=== PATIENT | female | born 1950 | race Two or more races ===

== ENCOUNTER 2021-03-28 22:38 | Inpatient (IN) | payer MEDICARE, SELFPAY ==
[2021-03-29 00:56] VITALS: BMI 21.8
[2021-03-29 01:48] VITALS: BP 107/80; PULSE 78; RESP 18; TEMP 36.9; O2SAT 94
--- NOTE | 2021-03-29 01:49 | PC.ADMIT ---
Admitted a 71 y.o. single female from [facility] w/ presenting problem of attempted suicide in which Pt initially reported that she had intentional ingested 8-9 pills. Pt. reports that she has difficulties w/ swallowing and that after putting the pills in the mouth,the pills got stuck in her throat due to hx. of having difficulties w/ thyroid and swallowing difficulties.Pt. states that she began to choke and in panic took a knife w/c she tried to use to push the pills down the throat.Currently pt. denies SI, HI, AH,VH and paranoia Patient is alert and oriented x4 and presents w/ organized thought and speech patterns w/ no hallucinations,no psychosis, no delusions and no paranoia.Patient signs the CV, pleasant on approach and cooperative w/ the admission process.Patient denies pain at this time.Skin is warm,no skin tears, bruises or edema noted.Patient has and old scar on her L wrist and has varicose veins in both legs. Patient wears upper and lower dentures.Patient refused flu vaccine and said she already received it a month ago.She said she is independent in ADLS and ambulate independently w/ steady gait and she is using a cane.Patient signed all consents and DR.Joseph Schwab notified of admission w/ n. o. made.Pt. covid result is negative.Pt. has PMH OF Etoh, Hepatomegaly Smoker, AND HTN. She is on CIWA and she only scores 2.We'll continue to monitor patient.
[2021-03-29] MEDS: Levothyroxine Sodium 175 MCG TABLET PO (06:21)
[2021-03-29] MEDS: Omeprazole 20 MG CAPSULE.DR PO (06:21)
[2021-03-29 07:55] VITALS: BP 120/75; PULSE 75; RESP 18; TEMP 36.2; O2SAT 95
[2021-03-29] MEDS: Folic Acid 1 MG TABLET PO (08:35)
[2021-03-29] MEDS: Ferrous Sulfate 324 MG TABLET.DR PO (08:35)
[2021-03-29] MEDS: Metoprolol Tartrate 25 MG TABLET PO (08:35)
[2021-03-29] MEDS: Sertraline HCL 100 MG TABLET 200 MG PO (08:35)
[2021-03-29] MEDS: Cyclobenzaprine HCl 5 MG TABLET PO (08:35)
[2021-03-29] MEDS: Nicotine 21 MG PATCH.TD24 TRANSDERMA (08:45)
[2021-03-29 09:42] VITALS: BMI 21.9
--- NOTE | 2021-03-29 11:29 | P.HPPS_ITS ---
HPI Date of Service: 03/29/21 Chief Complaint: Major depressive d/o Sources of Information: patient interviewed, chart reviewed and crisis/core team assessment reviewed HPI Subjective Notes: Conditional Voluntary Narrative: the patient is a 71-year-old descent female, mother of adult children, currently retired, used to be an insurance claim under water assistant, living by herself with good social support referred from another emergency room for suicidal ideation. According to the crisis assessment, the patient took several pills abruptly and since he she felt that he was stacking her throat, she used a knife to move the pills out. She had a blood alcohol level over 100 at the moment that she was assessed on the emergency room. On interview, the patient adamantly denies suicidal ideation, she is awake, alert and oriented and she is able to contract for safety. She admitted some dysphoria with mild lack of energy and anxiety but she minimized her alcohol use. Apparently, she drinks a gal of hard liquor every 3 days. She stated that she has been using alcohol heavily in the last 6 years. She denies prior treatment for alcohol use disorder such as detox or rehab or outpatient services. She stated that she is not a danger to self or others, she is able to to take care of herself and she is willing to continue treatment. At this moment, with not have collateral information and she has scored 2 on the CIWA protocol. Past Psychiatric History: Denies Medical Evaluation Reviewed: Hospitalist Ashly Pending [facility] Medical History Hypertension Family History: denies Social History: retired, she used to work for an insurance company Substance History: alcohol use doing a daily basis, denies prior treatment for alcohol use disorder Trauma History: denies Diagnostics Vital Signs (24Hr): Vital Signs - 24 hr 03/29/21 01:48 03/29/21 07:55 Temperature 98.4 F 97.2 F Pulse Rate 78 75 Respiratory Rate 18 18 Blood Pressure 107/80 120/75 Pulse Oximetry 94 95 BMI result Body Mass Index 21.9 Meds/Allergies Meds Home Medications Acetaminophen (Acetaminophen 325 Mg Tablet) 650 mg PO Q6H PRN PRN Reason: Headache/Pain Mild Scale (1-3) Al Hydroxide/Mg Hydroxide (Magnesium Hydrox/Alum Hydrox 30 Ml Oral.Susp) 30 ml PO Q6H PRN PRN Reason: Heartburn/Nausea Cyclobenzaprine HCl (Cyclobenzaprine Hcl 5 Mg Tablet) 5 mg PO BEDTIME PRN PRN Reason: Muscle Pain Cyclobenzaprine HCl (Cyclobenzaprine Hcl 5 Mg Tablet) 5 mg PO DAILY [facility] Last Admin: 03/29/21 08:35 Dose: 5 mg Documented by: Ferrous Sulfate (Ferrous Sulfate 324 Mg Tablet.) 324 mg PO DAILY [facility] Last Admin: 03/29/21 08:35 Dose: 324 mg Documented by: Folic Acid (Folic Acid 1 Mg Tablet) 1 mg PO DAILY [facility] Last Admin: 03/29/21 08:35 Dose: 1 mg Documented by: Hydroxyzine HCl (Hydroxyzine Hcl 25 Mg Tablet) 25 mg PO BEDTIME PRN PRN Reason: Anxiety Ibuprofen (Ibuprofen 600 Mg Tablet) 600 mg PO Q6H PRN PRN Reason: Pain (Scale Score 4-6) Levothyroxine Sodium (Levothyroxine Sodium 175 Mcg Tablet) 175 mcg PO DAILY@0600 [facility] Last Admin: 03/29/21 06:21 Dose: 175 mcg Documented by: Lorazepam (Lorazepam 1 Mg Tablet) 1 mg PO Q2H PRN PRN Reason: CIWA 9-14 Lorazepam (Lorazepam 1 Mg Tablet) 2 mg PO Q2H PRN PRN Reason: CIWA > 14 Magnesium Hydroxide (Milk Of Magnesia 30 Ml Oral.Susp) 30 ml PO DAILY PRN PRN Reason: Constipation Metoprolol Tartrate (Metoprolol Tartrate 25 Mg Tablet) 25 mg PO DAILY [facility] Last Admin: 03/29/21 08:35 Dose: 25 mg Documented by: Nicotine (Nicotine 21 Mg Patch.Td24) 21 mg TRANSDERMA DAILY [facility] Last Admin: 03/29/21 08:45 Dose: 21 mg Documented by: Nicotine Polacrilex (Nicotine Polacrilex 2 Mg Gum) 2 mg BUCCAL Q1H PRN PRN Reason: Nicotine Cravings Omeprazole (Omeprazole 20 Mg Capsule.) 20 mg PO DAILY@0630 [facility] Last Admin: 03/29/21 06:21 Dose: 20 mg Documented by: Potassium Chloride (Potassium Chloride Er 10 Meq Capsule.Er) 10 meq PO DAILY [facility] Last Admin: 03/29/21 08:35 Dose: 10 meq Documented by: Sertraline HCl (Sertraline Hcl 100 Mg Tablet) 200 mg PO DAILY [facility] Last Admin: 03/29/21 08:35 Dose: 200 mg Documented by: Trazodone HCl (Trazodone Hcl 50 Mg Tablet) 50 mg PO BEDTIME PRN PRN Reason: Insomnia Allergies Allergies Allergy/AdvReac Type Severity Reaction Status Date / Time Unable to Assess Allergy Unverified 03/28/21 22:56 Mental Status Exam Mental Status Exam Patient Appearance: Well Grooomed and Appropriate Patient Orientation: Person and Situation Level of Consciousness: Awake Patient Behavior: Appropriate and Cooperative Mood Description: Depressed Affect Description: Constricted Patient Cognition Impaired: No Ability to Follow Directions: Good Speech Pattern: Clear Hallucinations: None Delusions: Not Present Thought Process: Linear Thought Content: positive for Intact Judgement: Fair Assessment & Plan Assessment & Plan (1) Depressive disorder: Status: Acute Code(s): F32.A - Depression, unspecified (2) Alcohol abuse with intoxication: Status: Acute Code(s): F10.129 - Alcohol abuse with intoxication, unspecified Plan elderly female with a long history of alcohol use disorder admitted for self-harming behavior in the context of acute alcohol intoxication. The patient denies active suicidal ideation but she is on CIWA protocol since she drinks a gal of vodka every 3 days. Plan 1. Continue CIWA protocol. 2. Start Remeron 7.5 mg p.o. q.h.s. to target insomnia and depression Reason for continued inpatient stay Substantial Risk for: harm to self, inability to function, rapid decompensation and med/psych decompensation
--- NOTE | 2021-03-29 15:59 | P.CONHOSP_ITS ---
History of Present Illness Data of Consult Service Date: 03/29/21 Primary Care Provider: Unknown Physician HPI Reason for consult: Medical evaluattion 71 year old female with HTN, GERD, depression, hypothyroidism, alcohol use desorder who is admitted to Psych due to self harm behavior by drug ingestio, and alcholism..She tells me she is feeling better now, she has no acute medical complaint Review of Systems Review of Systems: Gen: no fever Resp: no sob, no cough CV: no chest, no DAY, no leg edema GI: No n/v, no abd pain Neuro: No confusion Psych: no SI at this moment Yes all other systems are reviewed and are negative [facility] Medical History (Updated 03/29/21 @ 16:39 by Louie Gong MD) Hypertension Hypothyroidism Social History Household Members: [facility] Do you presently have visiting nurse or other home services: Yes Patient Tobacco Use Status: Current everyday Tobacco user Tobacco use type: Cigarette Smoked in Last 30 Days: Yes e-Cigarette/Vaping Use: Never Used Patient Interested in Nicotine Replacement: Yes Patient Given Instructions on How to Stop Smoking: Yes Date Education Initiated: 03/29/21 Second Hand Smoke Exposure: No Use of substances other than those prescribed or required for medical reasons: No Currently Displaying Signs/Symptoms of Drug Intoxication Withdrawal: No Any prior treatment program specific to substance use: No Have you been hit, kicked, punched, or otherwise hurt by someone within the past year? If so, by whom?: No Do you feel safe in your current relationship?: Yes Is there a partner from a previous relationship who is making you feel unsafe now?: No Are you made to feel afraid or neglected: No [facility] Healthcare Practices: druze. Advance Directives: No Advance Directives Information Provided: Yes (declined) Advance Directives on File: No Do you have thoughts of harming others: None Do you have a plan to hurt others: No Plan Recently lost weight without trying: No How much weight loss: Not applicable Eating poorly because of decreased appetite: No Nutrition screen score: 0 Nutrition Risks: No Nutritional Risk Patient : No : No Poor oral hygiene: No service: No Sexual orientation: Straight/Heterosexual Meds Allergies Allergy/AdvReac Type Severity Reaction Status Date / Time Unable to Assess Allergy Unverified 03/28/21 22:56 Active Medications: Current Medications Acetaminophen (Acetaminophen 325 Mg Tablet) 650 mg PO Q6H PRN PRN Reason: Headache/Pain Mild Scale (1-3) Al Hydroxide/Mg Hydroxide (Magnesium Hydrox/Alum Hydrox 30 Ml Oral.Susp) 30 ml PO Q6H PRN PRN Reason: Heartburn/Nausea Cyclobenzaprine HCl (Cyclobenzaprine Hcl 5 Mg Tablet) 5 mg PO BEDTIME PRN PRN Reason: Muscle Pain Cyclobenzaprine HCl (Cyclobenzaprine Hcl 5 Mg Tablet) 5 mg PO DAILY [facility] Last Admin: 03/29/21 08:35 Dose: 5 mg Documented by: Ferrous Sulfate (Ferrous Sulfate 324 Mg Tablet.) 324 mg PO DAILY [facility] Last Admin: 03/29/21 08:35 Dose: 324 mg Documented by: Folic Acid (Folic Acid 1 Mg Tablet) 1 mg PO DAILY [facility] Last Admin: 03/29/21 08:35 Dose: 1 mg Documented by: Hydroxyzine HCl (Hydroxyzine Hcl 25 Mg Tablet) 25 mg PO BEDTIME PRN PRN Reason: Anxiety Ibuprofen (Ibuprofen 600 Mg Tablet) 600 mg PO Q6H PRN PRN Reason: Pain (Scale Score 4-6) Levothyroxine Sodium (Levothyroxine Sodium 175 Mcg Tablet) 175 mcg PO DAILY@0600 [facility] Last Admin: 03/29/21 06:21 Dose: 175 mcg Documented by: Lorazepam (Lorazepam 1 Mg Tablet) 1 mg PO Q2H PRN PRN Reason: CIWA 9-14 Lorazepam (Lorazepam 1 Mg Tablet) 2 mg PO Q2H PRN PRN Reason: CIWA > 14 Magnesium Hydroxide (Milk Of Magnesia 30 Ml Oral.Susp) 30 ml PO DAILY PRN PRN Reason: Constipation Metoprolol Tartrate (Metoprolol Tartrate 25 Mg Tablet) 25 mg PO DAILY [facility] Last Admin: 03/29/21 08:35 Dose: 25 mg Documented by: Nicotine (Nicotine 21 Mg Patch.Td24) 21 mg TRANSDERMA DAILY [facility] Last Admin: 03/29/21 08:45 Dose: 21 mg Documented by: Nicotine Polacrilex (Nicotine Polacrilex 2 Mg Gum) 2 mg BUCCAL Q1H PRN PRN Reason: Nicotine Cravings Omeprazole (Omeprazole 20 Mg Capsule.) 20 mg PO DAILY@0630 [facility] Last Admin: 03/29/21 06:21 Dose: 20 mg Documented by: Potassium Chloride (Potassium Chloride Er 10 Meq Capsule.Er) 10 meq PO DAILY [facility] Last Admin: 03/29/21 08:35 Dose: 10 meq Documented by: Sertraline HCl (Sertraline Hcl 100 Mg Tablet) 200 mg PO DAILY [facility] Last Admin: 03/29/21 08:35 Dose: 200 mg Documented by: Trazodone HCl (Trazodone Hcl 50 Mg Tablet) 50 mg PO BEDTIME PRN PRN Reason: Insomnia Home Medications Medication Instructions Recorded Confirmed Last Taken Type cyclobenzaprine 5 mg tablet 5 mg PO BEDTIME PRN 03/29/21 03/29/21 03/27/21 20:45 History cyclobenzaprine 5 mg tablet 5 mg PO DAILY 03/29/21 03/29/21 03/27/21 20:40 History ferrous sulfate 325 mg PO DAILY 03/29/21 03/29/21 03/27/21 20:40 History folic acid 1 mg tablet 1 mg PO DAILY 03/29/21 03/29/21 03/27/21 10:25 History ibuprofen 600 mg PO Q6H PRN 03/29/21 03/29/21 03/27/21 20:45 History levothyroxine 175 mcg PO DAILY 03/29/21 03/29/21 03/27/21 10:25 History metoprolol tartrate 25 mg PO DAILY 03/29/21 03/29/21 03/27/21 10:30 History nicotine 21 mg TRANSDERMAL DAILY 03/29/21 03/29/21 03/27/21 10:25 History pantoprazole 40 mg PO DAILY 03/29/21 03/29/21 03/27/21 10:25 History potassium chloride 10 mEq 10 meq PO DAILY 03/29/21 03/29/21 03/27/21 10:20 History tablet,extended release sertraline 100 mg tablet (Zoloft) 200 mg PO DAILY 03/29/21 03/29/21 03/27/21 20:25 History Physical Exam Vital Signs and Narrative: Vital Signs: Last Vital Signs Temp 97.2 F 03/29/21 07:55 Pulse 75 03/29/21 07:55 Resp 18 03/29/21 07:55 BP 120/75 03/29/21 07:55 Pulse Ox 95 03/29/21 07:55 BMI result Body Mass Index 21.9 General: AO X 3, no acute distress Resp: CTA bilateral CVS: S1,S2,RRR GI: +BS, NT, no distention Skin: No rash Neuro: motor grossly intact, CN 2 to 12 is intact Psych: appropriate affect Assessment and Plan (1) Depressive disorder: Status: Acute (2) Alcohol abuse with intoxication: Status: Acute (3) Hypertension: Status: Acute Plan 71 year old female with HTN, GERD, depression, hypothyroidism, alcohol use desorder who is admitted to Psych due to self harm behavior by drug ingestion 1/ HTN--controlled, continue Metoprolol 2/Hypothyroidism--continue Levothyroxine 3/GERD--PPI 4/Depression/SI--management per [facility] 5/Alcoholism--HARI Thanks
[2021-03-29 19:50] VITALS: BP 125/74; PULSE 75; RESP 16; TEMP 36.5; O2SAT 95
[2021-03-30 06:00] VITALS: BP 110/65; PULSE 71; RESP 14; O2SAT 95
[2021-03-30] MEDS: Levothyroxine Sodium 175 MCG TABLET PO (06:11)
[2021-03-30] MEDS: Omeprazole 20 MG CAPSULE.DR PO (06:11)
[2021-03-30] MEDS: Sertraline HCL 100 MG TABLET 200 MG PO (08:17)
[2021-03-30] MEDS: Nicotine 21 MG PATCH.TD24 TRANSDERMA (08:17)
[2021-03-30] MEDS: Ferrous Sulfate 324 MG TABLET.DR PO (08:18)
[2021-03-30] MEDS: Cyclobenzaprine HCl 5 MG TABLET PO ×2 (08:18→20:37)
[2021-03-30] MEDS: Metoprolol Tartrate 25 MG TABLET PO (08:18)
[2021-03-30] MEDS: Folic Acid 1 MG TABLET PO (08:18)
--- NOTE | 2021-03-30 13:48 | P.PNPSI_ITS ---
Subjective Subjective Date of Service: 03/30/21 Reason For Visit: Major depressive d/o Subjective Notes: Conditional Voluntary Interim History: The nursing staff reported the patient has been pleasant and cooperative, she slept well last night. She adamantly denied suicidal ideation and her observation for alcohol withdrawal was negative since admission. On interview, the patient reported that she is feeling fine, she denies suicidal ideation, she stated that she has never being depressed or suicidal. She minimize her alcohol use disorder and she stated that she would seek treatment without medications. The social media coordinator contact her daughter and the daughter reported a worse situation, the patient drinks a lot of alcohol and she put herself on an safe situations. We will have a family meeting early next week and explained the options. For the treatment, this moment the patient is in a pre-contemplative state Mental Status Exam Mental Status Exam Patient Appearance: Appropriate Patient Orientation: Person, Place and Situation Level of Consciousness: Awake Patient Behavior: Cooperative Mood Description: Relaxed Affect Description: Constricted Patient Cognition Impaired: No Ability to Follow Directions: Good Speech Pattern: Clear Memory Description: Intact Hallucinations: None Delusions: Not Present Thought Process: Linear Thought Content: positive for Circumstantial Judgement: Fair Diagnostics Vital Signs (24Hr): Vital Signs - 24 hr 03/29/21 19:50 03/30/21 06:00 Temperature 97.7 F Pulse Rate 75 71 Respiratory Rate 16 14 Blood Pressure 125/74 110/65 Pulse Oximetry 95 95 BMI result Body Mass Index 21.9 Medications Medications Current Medications Acetaminophen (Acetaminophen 325 Mg Tablet) 650 mg PO Q6H PRN PRN Reason: Headache/Pain Mild Scale (1-3) Al Hydroxide/Mg Hydroxide (Magnesium Hydrox/Alum Hydrox 30 Ml Oral.Susp) 30 ml PO Q6H PRN PRN Reason: Heartburn/Nausea Cyclobenzaprine HCl (Cyclobenzaprine Hcl 5 Mg Tablet) 5 mg PO BEDTIME PRN PRN Reason: Muscle Pain Cyclobenzaprine HCl (Cyclobenzaprine Hcl 5 Mg Tablet) 5 mg PO DAILY [facility] Last Admin: 03/30/21 08:18 Dose: 5 mg Documented by: Ferrous Sulfate (Ferrous Sulfate 324 Mg Tablet.) 324 mg PO DAILY [facility] Last Admin: 03/30/21 08:18 Dose: 324 mg Documented by: Folic Acid (Folic Acid 1 Mg Tablet) 1 mg PO DAILY [facility] Last Admin: 03/30/21 08:18 Dose: 1 mg Documented by: Hydroxyzine HCl (Hydroxyzine Hcl 25 Mg Tablet) 25 mg PO BEDTIME PRN PRN Reason: Anxiety Ibuprofen (Ibuprofen 600 Mg Tablet) 600 mg PO Q6H PRN PRN Reason: Pain (Scale Score 4-6) Levothyroxine Sodium (Levothyroxine Sodium 175 Mcg Tablet) 175 mcg PO DAILY@0600 [facility] Last Admin: 03/30/21 06:11 Dose: 175 mcg Documented by: Lorazepam (Lorazepam 1 Mg Tablet) 1 mg PO Q2H PRN PRN Reason: CIWA 9-14 Lorazepam (Lorazepam 1 Mg Tablet) 2 mg PO Q2H PRN PRN Reason: CIWA > 14 Magnesium Hydroxide (Milk Of Magnesia 30 Ml Oral.Susp) 30 ml PO DAILY PRN PRN Reason: Constipation Metoprolol Tartrate (Metoprolol Tartrate 25 Mg Tablet) 25 mg PO DAILY [facility] Last Admin: 03/30/21 08:18 Dose: 25 mg Documented by: Nicotine (Nicotine 21 Mg Patch.Td24) 21 mg TRANSDERMA DAILY [facility] Last Admin: 03/30/21 08:17 Dose: 21 mg Documented by: Nicotine Polacrilex (Nicotine Polacrilex 2 Mg Gum) 2 mg BUCCAL Q1H PRN PRN Reason: Nicotine Cravings Omeprazole (Omeprazole 20 Mg Capsule.Dr) 20 mg PO DAILY@0630 [facility] Last Admin: 03/30/21 06:11 Dose: 20 mg Documented by: Potassium Chloride (Potassium Chloride Er 10 Meq Capsule.Er) 10 meq PO DAILY [facility] Last Admin: 03/30/21 08:18 Dose: 10 meq Documented by: Sertraline HCl (Sertraline Hcl 100 Mg Tablet) 200 mg PO DAILY [facility] Last Admin: 03/30/21 08:17 Dose: 200 mg Documented by: Trazodone HCl (Trazodone Hcl 50 Mg Tablet) 50 mg PO BEDTIME PRN PRN Reason: Insomnia Allergies Allergies Allergy/AdvReac Type Severity Reaction Status Date / Time Unable to Assess Allergy Unverified 03/28/21 22:56 Assessment & Plan Assessment & Plan (1) Depressive disorder: Status: Acute Code(s): F32.A - Depression, unspecified (2) Alcohol abuse with intoxication: Status: Acute Code(s): F10.129 - Alcohol abuse with intoxication, unspecified (3) Hypertension: Status: Acute Code(s): I10 - Essential (primary) hypertension Plan 71 year old female with HTN, GERD, depression, hypothyroidism, alcohol use desorder who is admitted to Psych due to self harm behavior by drug ingestion 1/ HTN--controlled, continue Metoprolol 2/Hypothyroidism--continue Levothyroxine 3/GERD--PPI 4/Depression/SI--management per [facility]. keep Remeron at 15 mg p.o. q.h.s. 5/Alcoholism--CIWA to be discontinued tomorrow if she does not score I spent minutes with the patient and/or on the patient floor today, greater than?50% of which was spent counseling/coordinating care. Reason for contiued inpatient stay Substantial Risk for: inability to function, rapid decompensation and med/psych decompensation
--- NOTE | 2021-03-30 14:39 | MHC.RECOVSUP ---
Recovery Support note: Patient is a 71 year old [place]i speaking female on the [facility] in room 184-1. This comic book writer met with patient to discuss her alcohol use and recovery supports. Patient reports drinking two drinks of vodka daily with approximately 3-4oz of vodka in each with fruit juice. Patient acknowledges that her drinking has created problems for her and that her family is concerned about her. Discussed the negative health consequences of drinking with patient. Patient reports that she plans to stop drinking and identifies stress as the reason why she drinks. Patient reports her mother is in her 90s and that she wants to be there for her mother as she doesn't know how long she has left, referring to her mother. Discussed with patient how continued drinking may lead to future hospitalizations, preventing her from being with her mother and patient acknowledged. Patient states she has attended AA before and found it somewhat helpful while she was in a meeting, however reports that after the meetings were over she would continue to drink. Discussed recovery coaching with patient. Patient is agreeable to being referred to a recovery manager for follow up after discharge. This comic book writer will refer patient to a recovery manager. Encouraged patient to utilize her time in the hospital as an opportunity to think about what her recovery will look like and how she will stay busy and avoid drinking after discharge. Patient reports no questions or concerns at this time. This comic book writer is available to meet with patient again prior to discharge if needed to discuss recovery and recovery supports.
[2021-03-30] MEDS: Ibuprofen 600 MG TABLET PO (20:36)
[2021-03-30] MEDS: hydrOXYzine HCL 25 MG TABLET PO (20:37)
[2021-03-30 21:23] VITALS: BP 112/71; PULSE 78; RESP 16; TEMP 36.9; O2SAT 97
[2021-03-31 06:00] VITALS: BP 110/76; PULSE 80; TEMP 36.7; O2SAT 97
[2021-03-31] MEDS: Levothyroxine Sodium 175 MCG TABLET PO (06:06)
[2021-03-31] MEDS: Omeprazole 20 MG CAPSULE.DR PO (06:06)
[2021-03-31] MEDS: Sertraline HCL 100 MG TABLET 200 MG PO (08:46)
[2021-03-31] MEDS: Folic Acid 1 MG TABLET PO (08:46)
[2021-03-31] MEDS: Cyclobenzaprine HCl 5 MG TABLET PO ×2 (08:46→21:28)
[2021-03-31] MEDS: Ferrous Sulfate 324 MG TABLET.DR PO (08:46)
[2021-03-31] MEDS: Metoprolol Tartrate 25 MG TABLET PO (08:46)
--- NOTE | 2021-03-31 11:43 | P.PNPSI_ITS ---
Subjective Subjective Date of Service: 03/31/21 Reason For Visit: Major depressive d/o Interim History: pt found resting in her bed after breakfast. no complaints or requests. informed she is not in alcohol withdrawal and that CIWA protocol and ativan PRNs will be DCed. pt explains she did not try to kill herself prior to hospitalization but rather was in pain and was trying to use a knife in her mouth to aid the situation somehow. she reports her mood is fine and complains only of body aches. per staff, not scoring on CIWA. isolative. signed 3-day notice on friday. got atarax, flexeril, ibuprofen for leg pain. Mental Status Exam Mental Status Exam Narrative: appropriately dressed and groomed. cooperative. no PMA/PMR. speech nml rate, amount, loudness, latency. somewhat flattened tone. accented. thoughts linear and logical. affect flexible. mood Fine. denies SI. no HI/AVH expressed. Diagnostics Vital Signs (24Hr): Vital Signs - 24 hr 03/30/21 21:23 03/31/21 06:00 Temperature 98.4 F 98.0 F Pulse Rate 78 80 Respiratory Rate 16 Blood Pressure 112/71 110/76 Pulse Oximetry 97 97 BMI result Body Mass Index 21.9 Medications Medications Current Medications Acetaminophen (Acetaminophen 325 Mg Tablet) 650 mg PO Q6H PRN PRN Reason: Headache/Pain Mild Scale (1-3) Al Hydroxide/Mg Hydroxide (Magnesium Hydrox/Alum Hydrox 30 Ml Oral.Susp) 30 ml PO Q6H PRN PRN Reason: Heartburn/Nausea Cyclobenzaprine HCl (Cyclobenzaprine Hcl 5 Mg Tablet) 5 mg PO BEDTIME PRN PRN Reason: Muscle Pain Last Admin: 03/30/21 20:37 Dose: 5 mg Documented by: Cyclobenzaprine HCl (Cyclobenzaprine Hcl 5 Mg Tablet) 5 mg PO DAILY [facility] Last Admin: 03/31/21 08:46 Dose: 5 mg Documented by: Ferrous Sulfate (Ferrous Sulfate 324 Mg Tablet.) 324 mg PO DAILY [facility] Last Admin: 03/31/21 08:46 Dose: 324 mg Documented by: Folic Acid (Folic Acid 1 Mg Tablet) 1 mg PO DAILY [facility] Last Admin: 03/31/21 08:46 Dose: 1 mg Documented by: Hydroxyzine HCl (Hydroxyzine Hcl 25 Mg Tablet) 25 mg PO BEDTIME PRN PRN Reason: Anxiety Last Admin: 03/30/21 20:37 Dose: 25 mg Documented by: Ibuprofen (Ibuprofen 600 Mg Tablet) 600 mg PO Q6H PRN PRN Reason: Pain (Scale Score 4-6) Last Admin: 03/30/21 20:36 Dose: 600 mg Documented by: Levothyroxine Sodium (Levothyroxine Sodium 175 Mcg Tablet) 175 mcg PO DAILY@0600 [facility] Last Admin: 03/31/21 06:06 Dose: 175 mcg Documented by: Magnesium Hydroxide (Milk Of Magnesia 30 Ml Oral.Susp) 30 ml PO DAILY PRN PRN Reason: Constipation Metoprolol Tartrate (Metoprolol Tartrate 25 Mg Tablet) 25 mg PO DAILY [facility] Last Admin: 03/31/21 08:46 Dose: 25 mg Documented by: Nicotine (Nicotine 21 Mg Patch.Td24) 21 mg TRANSDERMA DAILY [facility] Last Admin: 03/31/21 11:03 Dose: Not Given Documented by: Nicotine Polacrilex (Nicotine Polacrilex 2 Mg Gum) 2 mg BUCCAL Q1H PRN PRN Reason: Nicotine Cravings Omeprazole (Omeprazole 20 Mg Capsule.Dr) 20 mg PO DAILY@0630 [facility] Last Admin: 03/31/21 06:06 Dose: 20 mg Documented by: Potassium Chloride (Potassium Chloride Er 10 Meq Capsule.Er) 10 meq PO DAILY [facility] Last Admin: 03/31/21 08:46 Dose: 10 meq Documented by: Sertraline HCl (Sertraline Hcl 100 Mg Tablet) 200 mg PO DAILY [facility] Last Admin: 03/31/21 08:46 Dose: 200 mg Documented by: Trazodone HCl (Trazodone Hcl 50 Mg Tablet) 50 mg PO BEDTIME PRN PRN Reason: Insomnia Allergies Allergies Allergy/AdvReac Type Severity Reaction Status Date / Time No Known Allergies Allergy Verified 03/30/21 14:23 Assessment & Plan Assessment & Plan (1) Depressive disorder: Status: Acute Code(s): F32.A - Depression, unspecified (2) Alcohol abuse with intoxication: Status: Acute Code(s): F10.129 - Alcohol abuse with intoxication, unspecified (3) Hypertension: Status: Acute Code(s): I10 - Essential (primary) hypertension Plan 71 year old female with HTN, GERD, depression, hypothyroidism, alcohol use desorder who is admitted to Psych due to self harm behavior by drug ingestion 1/ HTN--controlled, continue Metoprolol 2/Hypothyroidism--continue Levothyroxine 3/GERD--PPI 4/Depression/SI--management per [facility]. keep Remeron at 15 mg p.o. q.h.s. 5/Alcoholism--CIWA discontinued 03/31 as pt has not been scoring. PRN ativan DCed. I spent minutes with the patient and/or on the patient floor today, greater than?50% of which was spent counseling/coordinating care. Reason for contiued inpatient stay Substantial Risk for: harm to self
[2021-03-31 18:00] VITALS: BP 107/69; PULSE 73; RESP 16; TEMP 36.9; O2SAT 96
[2021-03-31] MEDS: Acetaminophen 325 MG TABLET 650 MG PO (21:27)
[2021-04-01] MEDS: Levothyroxine Sodium 175 MCG TABLET PO (05:57)
[2021-04-01] MEDS: Omeprazole 20 MG CAPSULE.DR PO (05:58)
[2021-04-01 06:00] VITALS: BP 104/69; PULSE 80; TEMP 36.4; O2SAT 98
[2021-04-01] MEDS: Sertraline HCL 100 MG TABLET 200 MG PO (08:54)
[2021-04-01] MEDS: Ferrous Sulfate 324 MG TABLET.DR PO (08:55)
[2021-04-01] MEDS: Folic Acid 1 MG TABLET PO (08:55)
[2021-04-01] MEDS: Cyclobenzaprine HCl 5 MG TABLET PO (08:55)
[2021-04-01] MEDS: Metoprolol Tartrate 25 MG TABLET PO (08:55)
--- NOTE | 2021-04-01 11:10 | HO.PSYCHPN ---
Subjective Subjective Date of Service: 04/01/21 Reason For Visit: Major depressive d/o Interim History: pt seen in [facility], seated in anticipation of morning mass on TV. states she is feeling well, would like to go home. has been in touch with her daughter. no complaints or requests. per staff, cooperative, isolative. had tylenol and flexeril for knee pain last nima. no other notable events or behaviors. Mental Status Exam Mental Status Exam Narrative: appropriately dressed and groomed. cooperative. no PMA/PMR. speech nml rate, amount, loudness, latency. somewhat flattened tone. accented. thoughts linear and logical. affect flexible. mood euthymic. no SI/HI/AVH expressed. Diagnostics Vital Signs (24Hr): Vital Signs - 24 hr 03/31/21 18:00 Temperature 98.5 F Pulse Rate 73 Respiratory Rate 16 Blood Pressure 107/69 Pulse Oximetry 96 BMI result Body Mass Index 21.9 Medications Medications Current Medications Acetaminophen (Acetaminophen 325 Mg Tablet) 650 mg PO Q6H PRN PRN Reason: Headache/Pain Mild Scale (1-3) Last Admin: 03/31/21 21:27 Dose: 650 mg Documented by: Al Hydroxide/Mg Hydroxide (Magnesium Hydrox/Alum Hydrox 30 Ml Oral.Susp) 30 ml PO Q6H PRN PRN Reason: Heartburn/Nausea Cyclobenzaprine HCl (Cyclobenzaprine Hcl 5 Mg Tablet) 5 mg PO BEDTIME PRN PRN Reason: Muscle Pain Last Admin: 03/31/21 21:28 Dose: 5 mg Documented by: Cyclobenzaprine HCl (Cyclobenzaprine Hcl 5 Mg Tablet) 5 mg PO DAILY [facility] Last Admin: 04/01/21 08:55 Dose: 5 mg Documented by: Ferrous Sulfate (Ferrous Sulfate 324 Mg Tablet.) 324 mg PO DAILY [facility] Last Admin: 04/01/21 08:55 Dose: 324 mg Documented by: Folic Acid (Folic Acid 1 Mg Tablet) 1 mg PO DAILY [facility] Last Admin: 04/01/21 08:55 Dose: 1 mg Documented by: Hydroxyzine HCl (Hydroxyzine Hcl 25 Mg Tablet) 25 mg PO BEDTIME PRN PRN Reason: Anxiety Last Admin: 03/30/21 20:37 Dose: 25 mg Documented by: Ibuprofen (Ibuprofen 600 Mg Tablet) 600 mg PO Q6H PRN PRN Reason: Pain (Scale Score 4-6) Last Admin: 03/30/21 20:36 Dose: 600 mg Documented by: Levothyroxine Sodium (Levothyroxine Sodium 175 Mcg Tablet) 175 mcg PO DAILY@0600 [facility] Last Admin: 04/01/21 05:57 Dose: 175 mcg Documented by: Magnesium Hydroxide (Milk Of Magnesia 30 Ml Oral.Susp) 30 ml PO DAILY PRN PRN Reason: Constipation Metoprolol Tartrate (Metoprolol Tartrate 25 Mg Tablet) 25 mg PO DAILY [facility] Last Admin: 04/01/21 08:55 Dose: 25 mg Documented by: Nicotine (Nicotine 21 Mg Patch.Td24) 21 mg TRANSDERMA DAILY [facility] Last Admin: 04/01/21 11:04 Dose: Not Given Documented by: Nicotine Polacrilex (Nicotine Polacrilex 2 Mg Gum) 2 mg BUCCAL Q1H PRN PRN Reason: Nicotine Cravings Omeprazole (Omeprazole 20 Mg Capsule.Dr) 20 mg PO DAILY@0630 [facility] Last Admin: 04/01/21 05:58 Dose: 20 mg Documented by: Potassium Chloride (Potassium Chloride Er 10 Meq Capsule.Er) 10 meq PO DAILY [facility] Last Admin: 04/01/21 08:55 Dose: 10 meq Documented by: Sertraline HCl (Sertraline Hcl 100 Mg Tablet) 200 mg PO DAILY [facility] Last Admin: 04/01/21 08:54 Dose: 200 mg Documented by: Trazodone HCl (Trazodone Hcl 50 Mg Tablet) 50 mg PO BEDTIME PRN PRN Reason: Insomnia Allergies Allergies Allergy/AdvReac Type Severity Reaction Status Date / Time No Known Allergies Allergy Verified 03/30/21 14:23 Assessment & Plan Assessment & Plan (1) Depressive disorder: Status: Acute Code(s): F32.A - Depression, unspecified (2) Alcohol abuse with intoxication: Status: Acute Code(s): F10.129 - Alcohol abuse with intoxication, unspecified (3) Hypertension: Status: Acute Code(s): I10 - Essential (primary) hypertension Plan 71 year old female with HTN, GERD, depression, hypothyroidism, alcohol use desorder who is admitted to Psych due to self harm behavior by drug ingestion 1/ HTN--controlled, continue Metoprolol 2/Hypothyroidism--continue Levothyroxine 3/GERD--PPI 4/Depression/SI--management per Psch. keep Remeron at 15 mg p.o. q.h.s. 5/Alcoholism--CIWA discontinued 03/31 as pt has not been scoring. PRN ativan DCed. I spent minutes with the patient and/or on the patient floor today, greater than?50% of which was spent counseling/coordinating care. Reason for contiued inpatient stay Substantial Risk for: harm to self
[2021-04-01 18:00] VITALS: BP 103/60; PULSE 70; RESP 17; TEMP 37.4; O2SAT 97
[2021-04-01] MEDS: traZODone HCL 50 MG TABLET PO (19:53)
[2021-04-02] MEDS: Levothyroxine Sodium 175 MCG TABLET PO (05:59)
[2021-04-02] MEDS: Omeprazole 20 MG CAPSULE.DR PO (06:00)
[2021-04-02] MEDS: Metoprolol Tartrate 25 MG TABLET PO (08:40)
[2021-04-02] MEDS: Sertraline HCL 100 MG TABLET 200 MG PO (08:41)
[2021-04-02] MEDS: Ferrous Sulfate 324 MG TABLET.DR PO (08:41)
[2021-04-02] MEDS: Folic Acid 1 MG TABLET PO (08:41)
[2021-04-02] MEDS: Cyclobenzaprine HCl 5 MG TABLET PO (08:41)
[2021-04-02] MEDS: Nicotine 21 MG PATCH.TD24 TRANSDERMA (08:43)
[2021-04-02 08:45] VITALS: BP 120/73; PULSE 79; RESP 18; TEMP 37.1; O2SAT 96
--- NOTE | 2021-04-02 19:53 | P.PNPSI_ITS ---
Subjective Subjective Date of Service: 04/02/21 Reason For Visit: Major depressive d/o Interim History: pt reports she is eating and sleeping well, has no complaints, would like to discharge home soon. denies SI/HI. per staff, 3-day up 04/05. pleasant, isolative. denies dep/SI. taking medications, sleeping and eating well. Mental Status Exam Mental Status Exam Narrative: appropriately dressed and groomed. cooperative. no PMA/PMR. speech nml rate, amount, loudness, latency. somewhat flattened tone. accented. thoughts linear and logical. affect flexible. mood euthymic. no SI/HI. no AVH expressed. Diagnostics Vital Signs (24Hr): Vital Signs - 24 hr 04/02/21 08:45 Temperature 98.7 F Pulse Rate 79 Respiratory Rate 18 Blood Pressure 120/73 Pulse Oximetry 96 BMI result Body Mass Index 21.9 Medications Medications Current Medications Acetaminophen (Acetaminophen 325 Mg Tablet) 650 mg PO Q6H PRN PRN Reason: Headache/Pain Mild Scale (1-3) Last Admin: 03/31/21 21:27 Dose: 650 mg Documented by: Al Hydroxide/Mg Hydroxide (Magnesium Hydrox/Alum Hydrox 30 Ml Oral.Susp) 30 ml PO Q6H PRN PRN Reason: Heartburn/Nausea Cyclobenzaprine HCl (Cyclobenzaprine Hcl 5 Mg Tablet) 5 mg PO BEDTIME PRN PRN Reason: Muscle Pain Last Admin: 03/31/21 21:28 Dose: 5 mg Documented by: Cyclobenzaprine HCl (Cyclobenzaprine Hcl 5 Mg Tablet) 5 mg PO DAILY [facility] Last Admin: 04/02/21 08:41 Dose: 5 mg Documented by: Ferrous Sulfate (Ferrous Sulfate 324 Mg Tablet.) 324 mg PO DAILY [facility] Last Admin: 04/02/21 08:41 Dose: 324 mg Documented by: Folic Acid (Folic Acid 1 Mg Tablet) 1 mg PO DAILY [facility] Last Admin: 04/02/21 08:41 Dose: 1 mg Documented by: Hydroxyzine HCl (Hydroxyzine Hcl 25 Mg Tablet) 25 mg PO BEDTIME PRN PRN Reason: Anxiety Last Admin: 03/30/21 20:37 Dose: 25 mg Documented by: Ibuprofen (Ibuprofen 600 Mg Tablet) 600 mg PO Q6H PRN PRN Reason: Pain (Scale Score 4-6) Last Admin: 03/30/21 20:36 Dose: 600 mg Documented by: Levothyroxine Sodium (Levothyroxine Sodium 175 Mcg Tablet) 175 mcg PO DAILY@0600 [facility] Last Admin: 04/02/21 05:59 Dose: 175 mcg Documented by: Magnesium Hydroxide (Milk Of Magnesia 30 Ml Oral.Susp) 30 ml PO DAILY PRN PRN Reason: Constipation Metoprolol Tartrate (Metoprolol Tartrate 25 Mg Tablet) 25 mg PO DAILY [facility] Last Admin: 04/02/21 08:40 Dose: 25 mg Documented by: Nicotine (Nicotine 21 Mg Patch.Td24) 21 mg TRANSDERMA DAILY [facility] Last Admin: 04/02/21 08:43 Dose: 21 mg Documented by: Nicotine Polacrilex (Nicotine Polacrilex 2 Mg Gum) 2 mg BUCCAL Q1H PRN PRN Reason: Nicotine Cravings Omeprazole (Omeprazole 20 Mg Capsule.Dr) 20 mg PO DAILY@0630 [facility] Last Admin: 04/02/21 06:00 Dose: 20 mg Documented by: Potassium Chloride (Potassium Chloride Er 10 Meq Capsule.Er) 10 meq PO DAILY [facility] Last Admin: 04/02/21 08:41 Dose: 10 meq Documented by: Sertraline HCl (Sertraline Hcl 100 Mg Tablet) 200 mg PO DAILY [facility] Last Admin: 04/02/21 08:41 Dose: 200 mg Documented by: Trazodone HCl (Trazodone Hcl 50 Mg Tablet) 50 mg PO BEDTIME PRN PRN Reason: Insomnia Last Admin: 04/01/21 19:53 Dose: 50 mg Documented by: Allergies Allergies Allergy/AdvReac Type Severity Reaction Status Date / Time No Known Allergies Allergy Verified 03/30/21 14:23 Assessment & Plan Assessment & Plan (1) Depressive disorder: Status: Acute Code(s): F32.A - Depression, unspecified (2) Alcohol abuse with intoxication: Status: Acute Code(s): F10.129 - Alcohol abuse with intoxication, unspecified (3) Hypertension: Status: Acute Code(s): I10 - Essential (primary) hypertension Plan 71 year old female with HTN, GERD, depression, hypothyroidism, alcohol use desorder who is admitted to [facility] due to self harm behavior by drug ingestion 1/ HTN--controlled, continue Metoprolol 2/Hypothyroidism--continue Levothyroxine 3/GERD--PPI 4/Depression/SI--management per [facility]. keep Remeron at 15 mg p.o. q.h.s. 5/Alcoholism--CIWA discontinued 03/31 as pt has not been scoring. PRN ativan DCed. I spent minutes with the patient and/or on the patient floor today, greater than?50% of which was spent counseling/coordinating care. Reason for contiued inpatient stay Substantial Risk for: harm to self
[2021-04-02] MEDS: traZODone HCL 50 MG TABLET PO (20:29)
[2021-04-02] MEDS: hydrOXYzine HCL 25 MG TABLET PO (20:29)
[2021-04-02 21:14] VITALS: BP 108/70; PULSE 80; RESP 18; TEMP 36.2; O2SAT 96
[2021-04-03] MEDS: Omeprazole 20 MG CAPSULE.DR PO (05:48)
[2021-04-03] MEDS: Levothyroxine Sodium 175 MCG TABLET PO (05:48)
[2021-04-03 08:00] VITALS: BP 145/67; PULSE 79; RESP 14; TEMP 36.6; O2SAT 96
[2021-04-03] MEDS: Sertraline HCL 100 MG TABLET 200 MG PO (08:18)
[2021-04-03] MEDS: Nicotine 21 MG PATCH.TD24 TRANSDERMA (08:18)
[2021-04-03] MEDS: Folic Acid 1 MG TABLET PO (08:19)
[2021-04-03] MEDS: Cyclobenzaprine HCl 5 MG TABLET PO (08:19)
[2021-04-03] MEDS: Metoprolol Tartrate 25 MG TABLET PO (08:24)
[2021-04-03] MEDS: Ferrous Sulfate 324 MG TABLET.DR PO (08:24)
--- NOTE | 2021-04-03 12:00 | HO.OPPROGNO ---
Subjective Subjective Date of Service: 04/03/21 Reason For Visit: Major depressive d/o Diagnostics Vital Signs (24Hr): Vital Signs - 24 hr 04/02/21 21:14 04/03/21 08:00 Temperature 97.2 F 97.9 F Pulse Rate 80 79 Respiratory Rate 18 14 Blood Pressure 108/70 145/67 H Pulse Oximetry 96 96 BMI result Body Mass Index 21.9 Discharge Plan Discharge Referrals: Physician,Unknown J [Primary Care Provider] - 1 Week Discharge Medications: No Action ferrous sulfate 325 mg PO DAILY 0RF cyclobenzaprine 5 mg Tablet 5 mg PO DAILY 0RF sertraline [Zoloft] 100 mg Tablet 200 mg PO DAILY 0RF potassium chloride 10 mEq Tablet Extended Release 10 meq PO DAILY 0RF folic acid 1 mg Tablet 1 mg PO DAILY 0RF cyclobenzaprine 5 mg Tablet 5 mg PO BEDTIME PRN (Reason: Muscle Pain) 0RF ibuprofen 600 mg PO Q6H PRN (Reason: Pain (Scale Score 4-6)) 0RF levothyroxine 175 mcg PO DAILY 0RF metoprolol tartrate 25 mg PO DAILY 0RF nicotine 21 mg transdermal DAILY 0RF pantoprazole 40 mg PO DAILY 0RF Assessment & Plan I spent minutes with the patient and/or on the patient floor today, greater than?50% of which was spent counseling/coordinating care.
--- NOTE | 2021-04-03 12:04 | P.PNPSI_ITS ---
Subjective Subjective Date of Service: 04/03/21 Reason For Visit: Major depressive d/o Subjective Notes: Conditional Voluntary and 3 Day Interim History: The nursing staff reported that the patient has been pleasant and cooperative, she has been eating and sleeping very well. The social work therapist reported that she contacted her children and they are very worried about a substance abuse of the patient. They stated that they have to remove the stove of the home because she lifted and attendant when she was intoxicated. On interview, the patient denies new symptoms she is in the pre-contemplative state and she minimizing her substance abuse. Her 3 day notice will on Mental Status Exam Mental Status Exam Patient Appearance: Appropriate Patient Orientation: Person, Place, Time and Situation Level of Consciousness: Awake and Appropriate Patient Behavior: Cooperative Mood Description: Appropriate Affect Description: Constricted Patient Cognition Impaired: No Ability to Follow Directions: Good Speech Pattern: Clear Memory Description: Intact Hallucinations: None Delusions: Not Present Thought Process: Linear Thought Content: positive for Circumstantial Judgement: Poor Diagnostics Vital Signs (24Hr): Vital Signs - 24 hr 04/02/21 21:14 04/03/21 08:00 Temperature 97.2 F 97.9 F Pulse Rate 80 79 Respiratory Rate 18 14 Blood Pressure 108/70 145/67 H Pulse Oximetry 96 96 BMI result Body Mass Index 21.9 Medications Medications Current Medications Acetaminophen (Acetaminophen 325 Mg Tablet) 650 mg PO Q6H PRN PRN Reason: Headache/Pain Mild Scale (1-3) Last Admin: 03/31/21 21:27 Dose: 650 mg Documented by: Al Hydroxide/Mg Hydroxide (Magnesium Hydrox/Alum Hydrox 30 Ml Oral.Susp) 30 ml PO Q6H PRN PRN Reason: Heartburn/Nausea Cyclobenzaprine HCl (Cyclobenzaprine Hcl 5 Mg Tablet) 5 mg PO BEDTIME PRN PRN Reason: Muscle Pain Last Admin: 03/31/21 21:28 Dose: 5 mg Documented by: Cyclobenzaprine HCl (Cyclobenzaprine Hcl 5 Mg Tablet) 5 mg PO DAILY [facility] Last Admin: 04/03/21 08:19 Dose: 5 mg Documented by: Ferrous Sulfate (Ferrous Sulfate 324 Mg Tablet.) 324 mg PO DAILY [facility] Last Admin: 04/03/21 08:24 Dose: 324 mg Documented by: Folic Acid (Folic Acid 1 Mg Tablet) 1 mg PO DAILY [facility] Last Admin: 04/03/21 08:19 Dose: 1 mg Documented by: Hydroxyzine HCl (Hydroxyzine Hcl 25 Mg Tablet) 25 mg PO BEDTIME PRN PRN Reason: Anxiety Last Admin: 04/02/21 20:29 Dose: 25 mg Documented by: Ibuprofen (Ibuprofen 600 Mg Tablet) 600 mg PO Q6H PRN PRN Reason: Pain (Scale Score 4-6) Last Admin: 03/30/21 20:36 Dose: 600 mg Documented by: Levothyroxine Sodium (Levothyroxine Sodium 175 Mcg Tablet) 175 mcg PO DAILY@0600 [facility] Last Admin: 04/03/21 05:48 Dose: 175 mcg Documented by: Magnesium Hydroxide (Milk Of Magnesia 30 Ml Oral.Susp) 30 ml PO DAILY PRN PRN Reason: Constipation Metoprolol Tartrate (Metoprolol Tartrate 25 Mg Tablet) 25 mg PO DAILY [facility] Last Admin: 04/03/21 08:24 Dose: 25 mg Documented by: Nicotine (Nicotine 21 Mg Patch.Td24) 21 mg TRANSDERMA DAILY [facility] Last Admin: 04/03/21 08:18 Dose: 21 mg Documented by: Nicotine Polacrilex (Nicotine Polacrilex 2 Mg Gum) 2 mg BUCCAL Q1H PRN PRN Reason: Nicotine Cravings Omeprazole (Omeprazole 20 Mg Capsule.Dr) 20 mg PO DAILY@0630 [facility] Last Admin: 04/03/21 05:48 Dose: 20 mg Documented by: Potassium Chloride (Potassium Chloride Er 10 Meq Capsule.Er) 10 meq PO DAILY [facility] Last Admin: 04/03/21 08:19 Dose: 10 meq Documented by: Sertraline HCl (Sertraline Hcl 100 Mg Tablet) 200 mg PO DAILY [facility] Last Admin: 04/03/21 08:18 Dose: 200 mg Documented by: Trazodone HCl (Trazodone Hcl 50 Mg Tablet) 50 mg PO BEDTIME PRN PRN Reason: Insomnia Last Admin: 04/02/21 20:29 Dose: 50 mg Documented by: Allergies Allergies Allergy/AdvReac Type Severity Reaction Status Date / Time No Known Allergies Allergy Verified 03/30/21 14:23 Assessment & Plan Assessment & Plan (1) Depressive disorder: Status: Acute Code(s): F32.A - Depression, unspecified (2) Alcohol abuse with intoxication: Status: Acute Code(s): F10.129 - Alcohol abuse with intoxication, unspecified (3) Hypertension: Status: Acute Code(s): I10 - Essential (primary) hypertension Plan The patient is an elderly descent female with a long history of alcohol use disorder that has worsened for the last 5 or 6 years, admitted for parasuicidal behavior in the context of alcohol intoxication. On admission, and later on, she adamantly denies suicidal ideation and she is in a pre- contemplative state. Plan 1. Continue same treatment 2. Start working on discharge planning I spent minutes with the patient and/or on the patient floor today, greater than?50% of which was spent counseling/coordinating care. Reason for contiued inpatient stay Substantial Risk for: rapid decompensation and med/psych decompensation
[2021-04-03 20:29] VITALS: BP 109/79; PULSE 76; RESP 17; TEMP 37.2; O2SAT 99
[2021-04-04] MEDS: Levothyroxine Sodium 175 MCG TABLET PO (06:26)
[2021-04-04] MEDS: Omeprazole 20 MG CAPSULE.DR PO (06:27)
[2021-04-04 06:49] LABS: MANUAL DIFF FLAG NO
[2021-04-04 06:52] LABS: Basophils Percent Auto 0.4 % (0-2); Eosinophils Absolute Auto 0.1 X10*3/uL (0.0-0.4); Eosinophils Percent Auto 1.5 % (0-4); Hematocrit 44.4 % (37.0-47.0); Hemoglobin 14.9 g/dl (12.0-16.0); Imm Gran Abs Auto 0.03 X10*3/uL (0.00-0.03); Imm Gran Pct Auto 0.4 % (0.0-0.4); Lymphocytes Absolute Auto 1.6 X10*3/uL (1.2-4.9); Lymphocytes Percent Auto 24.3 % (20-40); Mean Corpuscular HGB Conc 33.6 g/dl (31.0-35.0); Mean Corpuscular Hemoglobin 34.4 pg (27.0-33.0); Mean Corpuscular Volume 102.5 fL (80.0-98.0); Mean Platelet Volume 9.5 fL (9.4-12.3); Monocytes Absolute Auto 0.4 X10*3/uL (0.1-1.2); Neutrophils Absolute Auto 4.5 x10*3/uL (2.0-8.3); Neutrophils Percent Auto 67.4 % (45-73); Platelet Count 194 X10*3/uL (160-400); Red Blood Count 4.33 X10*6/uL (4.20-5.50); Red Cell Distribution Width 11.7 % (11.0-16.0); White Blood Count 6.7 X10*3/uL (4.8-10.8)
[2021-04-04 07:12] LABS: Ammonia 29 umol/L (13-55)
[2021-04-04 07:26] LABS: Alanine Aminotransferase 47 U/L (0-31); Albumin Level 3.7 g/dL (3.5-5.0); Alkaline Phosphatase 78 U/L (39-117); Anion Gap 14 (12-20); Aspartate Amino Transferase 53 U/L (5-31); Bilirubin Direct 0.4 mg/dL (0.0-0.5); Bilirubin Total 0.8 mg/dL (0.0-1.0); Blood Urea Nitrogen 9 mg/dL (9-16); Calcium 9.1 mg/dL (8.4-10.2); Carbon Dioxide 23 mmol/L (22-29); Chloride 106 mmol/L (96-108); Creatinine Clr Calc Pharmacy 64.5; Estimated Glomerular Filt Rate > 60; Gamma Glutamyl Transpeptidase 404 U/L (7-33); Glucose Random 103 mg/dL (60-115); Potassium 4.1 mmol/L (3.3-5.1); Sodium 139 mmol/L (135-145); Total Protein 7.2 g/dL (6.5-8.0)
[2021-04-04 07:30] VITALS: BP 103/74; PULSE 80; RESP 16; TEMP 36.3; O2SAT 96
[2021-04-04] MEDS: Thiamine HCL 100 MG TABLET PO (08:40)
[2021-04-04] MEDS: Sertraline HCL 100 MG TABLET 200 MG PO (08:40)
[2021-04-04] MEDS: risperiDONE 0.5 MG TABLET PO (08:41)
[2021-04-04] MEDS: Nicotine 21 MG PATCH.TD24 TRANSDERMA (08:41)
[2021-04-04] MEDS: Ferrous Sulfate 324 MG TABLET.DR PO (08:41)
[2021-04-04] MEDS: Metoprolol Tartrate 25 MG TABLET PO (08:41)
[2021-04-04] MEDS: Folic Acid 1 MG TABLET PO (08:41)
[2021-04-04] MEDS: Multivitamin TABLET 1 TAB PO (08:41)
[2021-04-04] MEDS: Cyclobenzaprine HCl 5 MG TABLET PO (08:41)
--- NOTE | 2021-04-04 15:55 | P.PNPSI_ITS ---
Subjective Subjective Date of Service: 04/04/21 Reason For Visit: Major depressive d/o Subjective Notes: Conditional Voluntary Interim History: The nursing staff reported that she slept well and had all her meals. We had a family meeting with her daughters and the daughters reported a worse situation that she initially accepted. I showed lab results that showed advanced damage due to alcohol. On interview, she is still on precontemplative state. On the famly meeting, the patient agreed to stay longer to arrange proper discharge services. Mental Status Exam Mental Status Exam Patient Appearance: Well Grooomed Patient Orientation: Person, Place and Situation Level of Consciousness: Awake Patient Behavior: Cooperative Mood Description: Depressed Affect Description: Constricted Patient Cognition Impaired: No Ability to Follow Directions: Good Speech Pattern: Appropriate Hallucinations: Visual Delusions: Paranoid Ideation Thought Process: Distracted and Linear Thought Content: positive for [place] and positive for Circumstantial Judgement: Poor Diagnostics Vital Signs (24Hr): Vital Signs - 24 hr 04/03/21 20:29 04/04/21 07:30 Temperature 99 F 97.3 F Pulse Rate 76 80 Respiratory Rate 17 16 Blood Pressure 109/79 103/74 Pulse Oximetry 99 96 BMI result Body Mass Index 21.9 Labs Results: 04/04/21 06:41 04/04/21 06:41 Labs: Laboratory Results - last 48 hr 04/04/21 04/04/21 04/04/21 06:41 06:41 06:41 WBC 6.7 RBC 4.33 Hgb 14.9 Hct 44.4 MCV 102.5 H MCH 34.4 H MCHC 33.6 RDW 11.7 Plt Count 194 MPV 9.5 Immature Gran % (Auto) 0.4 Neut % (Auto) 67.4 Lymph % (Auto) 24.3 [place] % (Auto) 6.0 Eos % (Auto) 1.5 Baso % (Auto) 0.4 Lymph # (Auto) 1.6 [place] # (Auto) 0.4 Eos # (Auto) 0.1 Baso # (Auto) 0.0 Abs Immat Gran (auto) 0.03 Absolute Neuts (auto) 4.5 Absolute Nucleated RBC 0.000 Nucleated RBC % (auto) 0.0 Sodium 139 Potassium 4.1 Chloride 106 Carbon Dioxide 23 Anion Gap 14 BUN 9 Creatinine 0.68 Estim Creat Clear Calc 64.5 Estimated GFR > 60 Random Glucose 103 Calcium 9.1 Total Bilirubin 0.8 Direct Bilirubin 0.4 GGT 404 H AST 53 H ALT 47 H Alkaline Phosphatase 78 Ammonia 29 Total Protein 7.2 Albumin 3.7 Medications Medications Current Medications Acetaminophen (Acetaminophen 325 Mg Tablet) 650 mg PO Q6H PRN PRN Reason: Headache/Pain Mild Scale (1-3) Last Admin: 03/31/21 21:27 Dose: 650 mg Documented by: Al Hydroxide/Mg Hydroxide (Magnesium Hydrox/Alum Hydrox 30 Ml Oral.Susp) 30 ml PO Q6H PRN PRN Reason: Heartburn/Nausea Cyclobenzaprine HCl (Cyclobenzaprine Hcl 5 Mg Tablet) 5 mg PO BEDTIME PRN PRN Reason: Muscle Pain Last Admin: 03/31/21 21:28 Dose: 5 mg Documented by: Cyclobenzaprine HCl (Cyclobenzaprine Hcl 5 Mg Tablet) 5 mg PO DAILY [facility] Last Admin: 04/04/21 08:41 Dose: 5 mg Documented by: Ferrous Sulfate (Ferrous Sulfate 324 Mg Tablet.) 324 mg PO DAILY [facility] Last Admin: 04/04/21 08:41 Dose: 324 mg Documented by: Folic Acid (Folic Acid 1 Mg Tablet) 1 mg PO DAILY [facility] Last Admin: 04/04/21 08:41 Dose: 1 mg Documented by: Hydroxyzine HCl (Hydroxyzine Hcl 25 Mg Tablet) 25 mg PO BEDTIME PRN PRN Reason: Anxiety Last Admin: 04/02/21 20:29 Dose: 25 mg Documented by: Ibuprofen (Ibuprofen 600 Mg Tablet) 600 mg PO Q6H PRN PRN Reason: Pain (Scale Score 4-6) Last Admin: 03/30/21 20:36 Dose: 600 mg Documented by: Levothyroxine Sodium (Levothyroxine Sodium 175 Mcg Tablet) 175 mcg PO DAILY@0 600 [facility] Last Admin: 04/04/21 06:26 Dose: 175 mcg Documented by: Magnesium Hydroxide (Milk Of Magnesia 30 Ml Oral.Susp) 30 ml PO DAILY PRN PRN Reason: Constipation Metoprolol Tartrate (Metoprolol Tartrate 25 Mg Tablet) 25 mg PO DAILY [facility] Last Admin: 04/04/21 08:41 Dose: 25 mg Documented by: Multivitamins/Vitamin C (Multivitamin Tablet) 1 tab PO DAILY [facility] Last Admin: 04/04/21 08:41 Dose: 1 tab Documented by: Nicotine (Nicotine 21 Mg Patch.Td24) 21 mg TRANSDERMA DAILY [facility] Last Admin: 04/04/21 08:41 Dose: 21 mg Documented by: Nicotine Polacrilex (Nicotine Polacrilex 2 Mg Gum) 2 mg BUCCAL Q1H PRN PRN Reason: Nicotine Cravings Omeprazole (Omeprazole 20 Mg Capsule.Dr) 20 mg PO DAILY@0630 [facility] Last Admin: 04/04/21 06:27 Dose: 20 mg Documented by: Potassium Chloride (Potassium Chloride Er 10 Meq Capsule.Er) 10 meq PO DAILY [facility] Last Admin: 04/04/21 08:40 Dose: 10 meq Documented by: Risperidone (Risperidone 0.5 Mg Tablet) 0.5 mg PO Q4H PRN PRN Reason: Hallucinations Last Admin: 04/04/21 08:41 Dose: 0.5 mg Documented by: Sertraline HCl (Sertraline Hcl 100 Mg Tablet) 200 mg PO DAILY [facility] Last Admin: 04/04/21 08:40 Dose: 200 mg Documented by: Thiamine HCl (Thiamine Hcl 100 Mg Tablet) 100 mg PO DAILY [facility] Last Admin: 04/04/21 08:40 Dose: 100 mg Documented by: Trazodone HCl (Trazodone Hcl 50 Mg Tablet) 50 mg PO BEDTIME PRN PRN Reason: Insomnia Last Admin: 04/02/21 20:29 Dose: 50 mg Documented by: Allergies Allergies Allergy/AdvReac Type Severity Reaction Status Date / Time No Known Allergies Allergy Verified 03/30/21 14:23 Assessment & Plan Assessment & Plan (1) Depressive disorder: Status: Acute Code(s): F32.A - Depression, unspecified (2) Alcohol abuse with intoxication: Status: Acute Code(s): F10.129 - Alcohol abuse with intoxication, unspecified (3) Hypertension: Status: Acute Code(s): I10 - Essential (primary) hypertension Plan The patient is an elderly descent female with a long history of alcohol use disorder that has worsened for the last 5 or 6 years, admitted for parasuicidal behavior in the context of alcohol intoxication. On admission, and later on, she adamantly denies suicidal ideation and she is in a pre- contemplative state. Plan 1. Continue same treatment 2. Start working on discharge planning I spent minutes with the patient and/or on the patient floor today, greater than?50% of which was spent counseling/coordinating care. Reason for contiued inpatient stay Substantial Risk for: inability to function, rapid decompensation and med/psych decompensation
[2021-04-04 20:00] VITALS: BP 97/70; PULSE 78; RESP 18; TEMP 36.9; O2SAT 95
[2021-04-05 06:00] VITALS: BP 132/82; PULSE 84; RESP 16; TEMP 36.7; O2SAT 96
[2021-04-05] MEDS: Omeprazole 20 MG CAPSULE.DR PO (06:16)
[2021-04-05] MEDS: Levothyroxine Sodium 175 MCG TABLET PO (06:16)
[2021-04-05] MEDS: Metoprolol Tartrate 25 MG TABLET PO (08:03)
[2021-04-05] MEDS: Sertraline HCL 100 MG TABLET 200 MG PO (08:03)
[2021-04-05] MEDS: Thiamine HCL 100 MG TABLET PO (08:03)
[2021-04-05] MEDS: Multivitamin TABLET 1 TAB PO (08:03)
[2021-04-05] MEDS: Nicotine 21 MG PATCH.TD24 TRANSDERMA (08:04)
[2021-04-05] MEDS: Folic Acid 1 MG TABLET PO (08:04)
[2021-04-05] MEDS: Ferrous Sulfate 324 MG TABLET.DR PO (08:04)
[2021-04-05] MEDS: Cyclobenzaprine HCl 5 MG TABLET PO (08:04)
[2021-04-05 11:53] VITALS: BMI 21.7
--- NOTE | 2021-04-05 15:19 | P.PNPSI_ITS ---
Subjective Subjective Date of Service: 04/05/21 Reason For Visit: Major depressive d/o Subjective Notes: Conditional Voluntary Interim History: The nursing staff reports the patient has been visible in the unit, she is cooperative and pleasant but looks slightly confused and guarded. We did a Baird test on the English today and she scored 15/30. It is clear that the patient has dementia at this point due to alcohol abuse. On interview the patient minimized her symptoms she feels okay I explained her lab results and the score of Baird and the patient was slightly disappointed and try to minimize her symptoms Mental Status Exam Mental Status Exam Patient Appearance: Well Grooomed Patient Orientation: Person Level of Consciousness: Awake Patient Behavior: Cooperative Mood Description: Depressed Affect Description: Constricted Patient Cognition Impaired: Yes Ability to Follow Directions: Good Speech Pattern: Clear Hallucinations: Visual Delusions: Not Present Thought Process: Evasive Thought Content: positive for [place] and positive for Poverty of Content Judgement: Fair Diagnostics Vital Signs (24Hr): Vital Signs - 24 hr 04/04/21 20:00 04/05/21 06:00 Temperature 98.5 F 98.0 F Pulse Rate 78 84 Respiratory Rate 18 16 Blood Pressure 97/70 132/82 Pulse Oximetry 95 96 BMI result Body Mass Index 21.7 Labs Results: 04/04/21 06:41 04/04/21 06:41 Labs: Laboratory Results - last 48 hr 04/04/21 04/04/21 04/04/21 06:41 06:41 06:41 WBC 6.7 RBC 4.33 Hgb 14.9 Hct 44.4 MCV 102.5 H MCH 34.4 H MCHC 33.6 RDW 11.7 Plt Count 194 MPV 9.5 Immature Gran % (Auto) 0.4 Neut % (Auto) 67.4 Lymph % (Auto) 24.3 [place] % (Auto) 6.0 Eos % (Auto) 1.5 Baso % (Auto) 0.4 Lymph # (Auto) 1.6 [place] # (Auto) 0.4 Eos # (Auto) 0.1 Baso # (Auto) 0.0 Abs Immat Gran (auto) 0.03 Absolute Neuts (auto) 4.5 Absolute Nucleated RBC 0.000 Nucleated RBC % (auto) 0.0 Sodium 139 Potassium 4.1 Chloride 106 Carbon Dioxide 23 Anion Gap 14 BUN 9 Creatinine 0.68 Estim Creat Clear Calc 64.5 Estimated GFR > 60 Random Glucose 103 Calcium 9.1 Total Bilirubin 0.8 Direct Bilirubin 0.4 GGT 404 H AST 53 H ALT 47 H Alkaline Phosphatase 78 Ammonia 29 Total Protein 7.2 Albumin 3.7 Medications Medications Current Medications Acetaminophen (Acetaminophen 325 Mg Tablet) 650 mg PO Q6H PRN PRN Reason: Headache/Pain Mild Scale (1-3) Last Admin: 03/31/21 21:27 Dose: 650 mg Documented by: Al Hydroxide/Mg Hydroxide (Magnesium Hydrox/Alum Hydrox 30 Ml Oral.Susp) 30 ml PO Q6H PRN PRN Reason: Heartburn/Nausea Cyclobenzaprine HCl (Cyclobenzaprine Hcl 5 Mg Tablet) 5 mg PO BEDTIME PRN PRN Reason: Muscle Pain Last Admin: 03/31/21 21:28 Dose: 5 mg Documented by: Cyclobenzaprine HCl (Cyclobenzaprine Hcl 5 Mg Tablet) 5 mg PO DAILY [facility] Last Admin: 04/05/21 08:04 Dose: 5 mg Documented by: Ferrous Sulfate (Ferrous Sulfate 324 Mg Tablet.) 324 mg PO DAILY [facility] Last Admin: 04/05/21 08:04 Dose: 324 mg Documented by: Folic Acid (Folic Acid 1 Mg Tablet) 1 mg PO DAILY [facility] Last Admin: 04/05/21 08:04 Dose: 1 mg Documented by: Hydroxyzine HCl (Hydroxyzine Hcl 25 Mg Tablet) 25 mg PO BEDTIME PRN PRN Reason: Anxiety Last Admin: 04/02/21 20:29 Dose: 25 mg Documented by: Ibuprofen (Ibuprofen 600 Mg Tablet) 600 mg PO Q6H PRN PRN Reason: Pain (Scale Score 4-6) Last Admin: 03/30/21 20:36 Dose: 600 mg Documented by: Levothyroxine Sodium (Levothyroxine Sodium 175 Mcg Tablet) 175 mcg PO DAILY@0600 [facility] Last Admin: 04/05/21 06:16 Dose: 175 mcg Documented by: Magnesium Hydroxide (Milk Of Magnesia 30 Ml Oral.Susp) 30 ml PO DAILY PRN PRN Reason: Constipation Metoprolol Tartrate (Metoprolol Tartrate 25 Mg Tablet) 25 mg PO DAILY [facility] Last Admin: 04/05/21 08:03 Dose: 25 mg Documented by: Multivitamins/Vitamin C (Multivitamin Tablet) 1 tab PO DAILY [facility] Last Admin: 04/05/21 08:03 Dose: 1 tab Documented by: Nicotine (Nicotine 21 Mg Patch.Td24) 21 mg TRANSDERMA DAILY [facility] Last Admin: 04/05/21 08:04 Dose: 21 mg Documented by: Nicotine Polacrilex (Nicotine Polacrilex 2 Mg Gum) 2 mg BUCCAL Q1H PRN PRN Reason: Nicotine Cravings Omeprazole (Omeprazole 20 Mg Capsule.Dr) 20 mg PO DAILY@0630 [facility] Last Admin: 04/05/21 06:16 Dose: 20 mg Documented by: Potassium Chloride (Potassium Chloride Er 10 Meq Capsule.Er) 10 meq PO DAILY [facility] Last Admin: 04/05/21 08:03 Dose: 10 meq Documented by: Risperidone (Risperidone 0.5 Mg Tablet) 0.5 mg PO Q4H PRN PRN Reason: Hallucinations Last Admin: 04/04/21 08:41 Dose: 0.5 mg Documented by: Sertraline HCl (Sertraline Hcl 100 Mg Tablet) 200 mg PO DAILY [facility] Last Admin: 04/05/21 08:03 Dose: 200 mg Documented by: Thiamine HCl (Thiamine Hcl 100 Mg Tablet) 100 mg PO DAILY [facility] Last Admin: 04/05/21 08:03 Dose: 100 mg Documented by: Trazodone HCl (Trazodone Hcl 50 Mg Tablet) 50 mg PO BEDTIME PRN PRN Reason: Insomnia Last Admin: 04/02/21 20:29 Dose: 50 mg Documented by: Allergies Allergies Allergy/AdvReac Type Severity Reaction Status Date / Time No Known Allergies Allergy Verified 03/30/21 14:23 Assessment & Plan Assessment & Plan (1) Depressive disorder: Status: Acute Code(s): F32.A - Depression, unspecified (2) Alcohol abuse with intoxication: Status: Acute Code(s): F10.129 - Alcohol abuse with intoxication, unspecified (3) Hypertension: Status: Acute Code(s): I10 - Essential (primary) hypertension Plan The patient is an elderly descent female with a long history of alcohol use disorder that has worsened for the last 5 or 6 years, admitted for parasuicidal behavior in the context of alcohol intoxication. On admission, and later on, she adamantly denies suicidal ideation and she is in a pre- contemplative state. Plan 1. Continue same treatment 2. Start working on discharge planning I spent ____20__ minutes with the patient and/or on the patient floor today, greater than?50% of which was spent counseling/coordinating care. Patient educated on: diagnosis and therapeutic strategies Informed Consent: further education needed Reason for contiued inpatient stay Substantial Risk for: inability to function, rapid decompensation and med/psych decompensation
[2021-04-05 20:37] VITALS: BP 111/66; PULSE 80; RESP 18; TEMP 36.7; O2SAT 98
[2021-04-06] MEDS: Levothyroxine Sodium 175 MCG TABLET PO (05:47)
[2021-04-06] MEDS: Omeprazole 20 MG CAPSULE.DR PO (05:47)
[2021-04-06 06:00] VITALS: BP 122/73; PULSE 90; TEMP 36.8; O2SAT 86
--- NOTE | 2021-04-06 06:53 | P.DS_ITS ---
DS: Providers Provider Date of Service: 04/08/21 Date of admission: 03/28/21 22:38 Date of discharge: 04/08/21 Primary care physician: Unknown Physician Consults: 03/29/21 10:58 Consult to Hospitalist Routine Consulting Provider: Hospitalist Reason For Exam: Direct admission DS: Diagnosis Discharge Diagnosis (1) Depressive disorder: Status: Acute (2) Alcohol abuse with intoxication: Status: Acute (3) Hypertension: Status: Acute (4) Dementia associated with alcoholism: Status: Acute (5) Wernicke-Korsakoff psychosis: Status: Acute DS: Medications Discharge Medications Home Medications: Home Medications Medication Instructions Recorded Confirmed cyclobenzaprine 5 mg tablet 5 mg PO BEDTIME PRN 03/29/21 03/29/21 cyclobenzaprine 5 mg tablet 5 mg PO DAILY 03/29/21 03/29/21 ferrous sulfate 325 mg PO DAILY 03/29/21 03/29/21 folic acid 1 mg tablet 1 mg PO DAILY 03/29/21 03/29/21 ibuprofen 600 mg PO Q6H PRN 03/29/21 03/29/21 levothyroxine 175 mcg PO DAILY 03/29/21 03/29/21 metoprolol tartrate 25 mg PO DAILY 03/29/21 03/29/21 nicotine 21 mg TRANSDERMAL DAILY 03/29/21 03/29/21 pantoprazole 40 mg PO DAILY 03/29/21 03/29/21 potassium chloride 10 mEq 10 meq PO DAILY 03/29/21 03/29/21 tablet,extended release sertraline 100 mg tablet (Zoloft) 200 mg PO DAILY 03/29/21 03/29/21 Mental Status Exam Mental Status Exam Patient Appearance: Well Grooomed Patient Orientation: Person and Situation Level of Consciousness: Awake Patient Behavior: Cooperative Mood Description: Depressed Affect Description: Constricted Patient Cognition Impaired: Yes Ability to Follow Directions: Good Speech Pattern: Clear Hallucinations: Visual Delusions: Paranoid Ideation Thought Process: Distracted and Evasive Thought Content: positive for [place] and positive for Poverty of Content Judgement: Poor Data Data Completed and Pending Completed studies during hospitalization [Text1]: 04/04/21 04/04/21 04/04/21 06:41 06:41 06:41 WBC 6.7 RBC 4.33 Hgb 14.9 Hct 44.4 MCV 102.5 H MCH 34.4 H MCHC 33.6 RDW 11.7 Plt Count 194 MPV 9.5 Immature Gran % (Auto) 0.4 Neut % (Auto) 67.4 Lymph % (Auto) 24.3 [place] % (Auto) 6.0 Eos % (Auto) 1.5 Baso % (Auto) 0.4 Lymph # (Auto) 1.6 [place] # (Auto) 0.4 Eos # (Auto) 0.1 Baso # (Auto) 0.0 Abs Immat Gran (auto) 0.03 Absolute Neuts (auto) 4.5 Absolute Nucleated RBC 0.000 Nucleated RBC % (auto) 0.0 PT Mixing Study Pending PT Normal Plasma Immed Pending PTT Mixing Study Pending PTT Normal Plasma Immed Pending PTT Normal Plasma Post Pending Mixing Interpretation Pending Sodium 139 Potassium 4.1 Chloride 106 Carbon Dioxide 23 Anion Gap 14 BUN 9 Creatinine 0.68 Estim Creat Clear Calc 64.5 Estimated GFR > 60 Random Glucose 103 Calcium 9.1 Total Bilirubin 0.8 Direct Bilirubin 0.4 GGT 404 H AST 53 H ALT 47 H Alkaline Phosphatase 78 Ammonia Total Protein 7.2 Albumin 3.7 04/04/21 06:41 WBC RBC Hgb Hct MCV MCH MCHC RDW Plt Count MPV Immature Gran % (Auto) Neut % (Auto) Lymph % (Auto) [place] % (Auto) Eos % (Auto) Baso % (Auto) Lymph # (Auto) [place] # (Auto) Eos # (Auto) Baso # (Auto) Abs Immat Gran (auto) Absolute Neuts (auto) Absolute Nucleated RBC Nucleated RBC % (auto) PT Mixing Study PT Normal Plasma Immed PTT Mixing Study PTT Normal Plasma Immed PTT Normal Plasma Post Mixing Interpretation Sodium Potassium Chloride Carbon Dioxide Anion Gap BUN Creatinine Estim Creat Clear Calc Estimated GFR Random Glucose Calcium Total Bilirubin Direct Bilirubin GGT AST ALT Alkaline Phosphatase Ammonia 29 Total Protein Albumin DS: Summary Hospital Course Hospital Course: The patient was initially transferred from another hospital after she tried to hurt herself while intoxicated with alcohol. Please see HPI on the admission note for further details. On admission, the patient adamantly denies suicidal ideation she stated that she tried to push the pills down with a blunt knife and she was not suicidal. The patient complained of depressive symptoms elicited by depressed mood, anhedonia lack of energy and poor sleep so we started on a low dose of Remeron that he was titrated up to 15 mg p.o. q.h.s. with for tolerability and response. We did several family meetings and apparently the patient has been drinking heavily for the last 6-10 years. The patient is in a pre-contemplative state and she does not identify alcohol as a main problem. Her daughters, who are very involved in her care her very worried and apparently the patient has been more dysfunctional that she looked like. We did a [place] test and the patient scored 15/30 even though that she did not look so dysfunctional. Also she complained of a sporadic auditory and visual hallucinations and paranoia mostly at night. All the symptoms are unclear correlation with Wernicke- Korsakoff syndrome. 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 We discussed with the patient this results but at this moment she did not want naltrexone or any other medically assisted treatment for alcohol abuse. Since there were no safety concerns discharge planning was discussed and she should be discharged over the weekend. Time spent discussing smoking cessation with patient: 3 to 10 minutes Time Spent with Patient Time attestation: Total time spent providing and/or coordinating discharge services: Discharge Plan Discharge Patient Disposition: Home, Self-Care Discharge Diagnosis: Depressive disorder. Alcohol dependence severe. 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 [employer] to restart following discharge. ) [facility] [Other] - 1 Week (Referral made for therapy and psychiatry. ) Physician,Arben J [Primary Care Provider] - 1 Week Discharge Medications: New multivitamin [Daily-Sanjeev] Tablet 1 tab PO DAILY 30 Days Qty: 30 0RF thiamine mononitrate (vit B1) 100 mg Tablet 100 mg PO DAILY 30 Days Qty: 30 0RF Continued ferrous sulfate 325 mg PO DAILY 0RF cyclobenzaprine 5 mg Tablet 5 mg PO DAILY 0RF sertraline [Zoloft] 100 mg Tablet 200 mg PO DAILY 0RF potassium chloride 10 mEq Tablet Extended Release 10 meq PO DAILY 0RF folic acid 1 mg Tablet 1 mg PO DAILY 0RF cyclobenzaprine 5 mg Tablet 5 mg PO BEDTIME PRN (Reason: Muscle Pain) 0RF ibuprofen 600 mg PO Q6H PRN (Reason: Pain (Scale Score 4-6)) 0RF levothyroxine 175 mcg PO DAILY 0RF metoprolol tartrate 25 mg PO DAILY 0RF pantoprazole 40 mg PO DAILY 0RF Discontinued nicotine 21 mg transdermal DAILY 0RF Discharge Orders: Discharge Order (Routine); Ordered 04/08/21 Ordered By: Noah Lagos Activity on Discharge: As tolerated Stand Alone Forms: Patient Portal Discharge page Care Plan Goals: Care plan goals achieved in this hospitalization Health Concerns: Continue treatment with primary care physician Plan of Treatment: Outpatient treatment. The family is aware of Section 35 if needed Assessment: Elderly female with a long history of depression and alcohol use disorder severe with dementia induced by alcohol and liver damage, admitted for parasuicidal behavior in the context of alcohol intoxication. At this moment The patient is safe in the community, the patient is in the pre-contemplative state and most likely she will need Section 35.
[2021-04-06] MEDS: Ferrous Sulfate 324 MG TABLET.DR PO (08:24)
[2021-04-06] MEDS: Metoprolol Tartrate 25 MG TABLET PO (08:24)
[2021-04-06] MEDS: Sertraline HCL 100 MG TABLET 200 MG PO (08:24)
[2021-04-06] MEDS: Thiamine HCL 100 MG TABLET PO (08:24)
[2021-04-06] MEDS: Multivitamin TABLET 1 TAB PO (08:24)
[2021-04-06] MEDS: Folic Acid 1 MG TABLET PO (08:24)
[2021-04-06] MEDS: Cyclobenzaprine HCl 5 MG TABLET PO (08:25)
--- NOTE | 2021-04-06 09:33 | PC.NURSE ---
Pt had fall at 0720 in the hallway, pt reports she slipped on her socks . Pt denied hitting her head, fall was unwitnessed. Pt VS were O2 between 86-88, (reported to ), BP: 122/73; Pulse: 90; T:98.3: R:16. Pt's daughter Zora was notified of the fall.
--- NOTE | 2021-04-06 16:37 | P.PNPSI_ITS ---
Subjective Subjective Date of Service: 04/06/21 Reason For Visit: Major depressive d/o Subjective Notes: Conditional Voluntary Interim History: The nursing staff reported the patient fell today in the morning with her saturation went below 80 now she is much better. Her saturation is overnight and she is a chronic smoker. 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 The patient was able to understand but she minimized her alcohol use disorder. At this point she is in a pre-contemplative state Mental Status Exam Mental Status Exam Patient Appearance: Well Grooomed Patient Orientation: Person and Situation Level of Consciousness: Awake Patient Behavior: Guarded and Passive Mood Description: Calm Affect Description: Constricted Patient Cognition Impaired: Yes Ability to Follow Directions: Good Speech Pattern: Clear Hallucinations: Visual Delusions: Not Present Thought Process: Linear Thought Content: positive for [place], positive for Circumstantial and positive for Poverty of Content Judgement: Fair Diagnostics Vital Signs (24Hr): Vital Signs - 24 hr 04/05/21 20:37 04/06/21 06:00 Temperature 98.1 F 98.3 F Pulse Rate 80 90 Respiratory Rate 18 Blood Pressure 111/66 122/73 Pulse Oximetry 98 86 L BMI result Body Mass Index 21.7 Labs Results: 04/04/21 06:41 04/04/21 06:41 Medications Medications Current Medications Acetaminophen (Acetaminophen 325 Mg Tablet) 650 mg PO Q6H PRN PRN Reason: Headache/Pain Mild Scale (1-3) Last Admin: 03/31/21 21:27 Dose: 650 mg Documented by: Al Hydroxide/Mg Hydroxide (Magnesium Hydrox/Alum Hydrox 30 Ml Oral.Susp) 30 ml PO Q6H PRN PRN Reason: Heartburn/Nausea Cyclobenzaprine HCl (Cyclobenzaprine Hcl 5 Mg Tablet) 5 mg PO BEDTIME PRN PRN Reason: Muscle Pain Last Admin: 03/31/21 21:28 Dose: 5 mg Documented by: Cyclobenzaprine HCl (Cyclobenzaprine Hcl 5 Mg Tablet) [address] [facility] Last Admin: 04/06/21 08:25 Dose: 5 mg Documented by: Ferrous Sulfate (Ferrous Sulfate 324 Mg Tablet.Dr) [address] [facility] Last Admin: 04/06/21 08:24 Dose: 324 mg Documented by: Folic Acid (Folic Acid 1 Mg Tablet) [address] [facility] Last Admin: 04/06/21 08:24 Dose: 1 mg Documented by: Hydroxyzine HCl (Hydroxyzine Hcl 25 Mg Tablet) 25 mg PO BEDTIME PRN PRN Reason: Anxiety Last Admin: 04/02/21 20:29 Dose: 25 mg Documented by: Ibuprofen (Ibuprofen 600 Mg Tablet) 600 mg PO Q6H PRN PRN Reason: Pain (Scale Score 4-6) Last Admin: 03/30/21 20:36 Dose: 600 mg Documented by: Levothyroxine Sodium (Levothyroxine Sodium 175 Mcg Tablet) 175 mcg PO DA TRENA@0600 [facility] Last Admin: 04/06/21 05:47 Dose: 175 mcg Documented by: Magnesium Hydroxide (Milk Of Magnesia 30 Ml Oral.Susp) 30 ml PO DAILY PRN PRN Reason: Constipation Metoprolol Tartrate (Metoprolol Tartrate 25 Mg Tablet) [address] [facility] Last Admin: 04/06/21 08:24 Dose: 25 mg Documented by: Multivitamins/Vitamin C (Multivitamin Tablet) [address] [facility] Last Admin: 04/06/21 08:24 Dose: 1 tab Documented by: Nicotine (Nicotine 21 Mg Patch.Td24) [address] [facility] Last Admin: 04/06/21 08:28 Dose: Not Given Documented by: Nicotine Polacrilex (Nicotine Polacrilex 2 Mg Gum) 2 mg BUCCAL Q1H PRN PRN Reason: Nicotine Cravings Omeprazole (Omeprazole 20 Mg Capsule.Dr) 20 mg PO DAILY@0630 [facility] Last Admin: 04/06/21 05:47 Dose: 20 mg Documented by: Potassium Chloride (Potassium Chloride Er 10 Meq Capsule.Er) [address] [facility] Last Admin: 04/06/21 08:23 Dose: 10 meq Documented by: Risperidone (Risperidone 0.5 Mg Tablet) 0.5 mg PO Q4H PRN PRN Reason: Hallucinations Last Admin: 04/04/21 08:41 Dose: 0.5 mg Documented by: Sertraline HCl (Sertraline Hcl 100 Mg Tablet) [address] [facility] Last Admin: 04/06/21 08:24 Dose: 200 mg Documented by: Thiamine HCl (Thiamine Hcl 100 Mg Tablet) [address] [facility] Last Admin: 04/06/21 08:24 Dose: 100 mg Documented by: Trazodone HCl (Trazodone Hcl 50 Mg Tablet) 50 mg PO BEDTIME PRN PRN Reason: Insomnia Last Admin: 04/02/21 20:29 Dose: 50 mg Documented by: Allergies Allergies Allergy/AdvReac Type Severity Reaction Status Date / Time No Known Allergies Allergy Verified 03/30/21 14:23 Assessment & Plan Assessment & Plan (1) Depressive disorder: Status: Acute Code(s): F32.A - Depression, unspecified (2) Alcohol abuse with intoxication: Status: Acute Code(s): F10.129 - Alcohol abuse with intoxication, unspecified (3) Hypertension: Status: Acute Code(s): I10 - Essential (primary) hypertension (4) Dementia associated with alcoholism: Status: Acute Code(s): F10.27 - Alcohol dependence with alcohol-induced persisting dementia (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 On admission, and later on, she adamantly denies suicidal ideation and she is in a pre- contemplative state. Later on, we found out that she had advanced dementia, chronic liver failure, consequence of her chronic alcohol use disorder Plan 1. Continue same treatment 2. Discharged on Friday. The family is aware of Section 35 I spent _30 minutes with the patient and/or on the patient floor today, greater than?50% of which was spent counseling/coordinating care. Patient educated on: diagnosis and therapeutic strategies Informed Consent: further education needed Reason for contiued inpatient stay Substantial Risk for: stable for discharge and med/psych decompensation
[2021-04-06 18:00] VITALS: BP 100/60; PULSE 79; RESP 18; TEMP 36.2; O2SAT 98
--- NOTE | 2021-04-06 19:25 | PC.NURSE ---
Pt has appt with jana bryant, Dr. Lozada, scheduled next week. Phone number for office is [phone]. Fax number is [phone]. Please send all relevant paperwork to office when pt discharges.
[2021-04-06] MEDS: traZODone HCL 50 MG TABLET PO (23:29)
[2021-04-07] MEDS: Levothyroxine Sodium 175 MCG TABLET PO (05:53)
[2021-04-07] MEDS: Omeprazole 20 MG CAPSULE.DR PO (05:54)
[2021-04-07 08:00] VITALS: BP 93/61; PULSE 96; RESP 18; TEMP 36.2; O2SAT 96
[2021-04-07] MEDS: Ferrous Sulfate 324 MG TABLET.DR PO (08:59)
[2021-04-07] MEDS: Multivitamin TABLET 1 TAB PO (08:59)
[2021-04-07] MEDS: Cyclobenzaprine HCl 5 MG TABLET PO (08:59)
[2021-04-07] MEDS: Sertraline HCL 100 MG TABLET 200 MG PO (08:59)
[2021-04-07] MEDS: Folic Acid 1 MG TABLET PO (09:00)
[2021-04-07] MEDS: Thiamine HCL 100 MG TABLET PO (09:00)
[2021-04-07] MEDS: Nicotine 21 MG PATCH.TD24 TRANSDERMA (09:00)
[2021-04-07] MEDS: Metoprolol Tartrate 25 MG TABLET PO (09:00)
--- NOTE | 2021-04-07 09:30 | HO.PSYCHPN ---
Subjective Subjective Date of Service: 04/07/21 Reason For Visit: Major depressive d/o Subjective Notes: Vazquez Warning Guardianship: No Interim History: pt was somewhat lethargic discharge planned for tomm labs ammonia have been wnl Mental Status Exam Mental Status Exam Patient Appearance: Well Grooomed Patient Orientation: Person and Situation Level of Consciousness: Awake Patient Behavior: Guarded and Passive Mood Description: Calm Affect Description: Constricted Patient Cognition Impaired: Yes Ability to Follow Directions: Good Speech Pattern: Clear Hallucinations: Visual Delusions: Not Present Thought Process: Linear Thought Content: positive for [place], positive for Circumstantial and positive for Poverty of Content Judgement: Fair Diagnostics Vital Signs (24Hr): Vital Signs - 24 hr 04/06/21 18:00 Temperature 97.1 F Pulse Rate 79 Respiratory Rate 18 Blood Pressure 100/60 Pulse Oximetry 98 BMI result Body Mass Index 21.7 Labs Results: 04/04/21 06:41 04/04/21 06:41 Medications Medications Current Medications Acetaminophen (Acetaminophen 325 Mg Tablet) 650 mg PO Q6H PRN PRN Reason: Headache/Pain Mild Scale (1-3) Last Admin: 03/31/21 21:27 Dose: 650 mg Documented by: Al Hydroxide/Mg Hydroxide (Magnesium Hydrox/Alum Hydrox 30 Ml Oral.Susp) 30 ml PO Q6H PRN PRN Reason: Heartburn/Nausea Cyclobenzaprine HCl (Cyclobenzaprine Hcl 5 Mg Tablet) 5 mg PO BEDTIME PRN PRN Reason: Muscle Pain Last Admin: 03/31/21 21:28 Dose: 5 mg Documented by: Cyclobenzaprine HCl (Cyclobenzaprine Hcl 5 Mg Tablet) 5 mg PO DAILY [facility] Last Admin: 04/07/21 08:59 Dose: 5 mg Documented by: Ferrous Sulfate (Ferrous Sulfate 324 Mg Tablet.) 324 mg PO DAILY [facility] Last Admin: 04/07/21 08:59 Dose: 324 mg Documented by: Folic Acid (Folic Acid 1 Mg Tablet) 1 mg PO DAILY [facility] Last Admin: 04/07/21 09:00 Dose: 1 mg Documented by: Hydroxyzine HCl (Hydroxyzine Hcl 25 Mg Tablet) 25 mg PO BEDTIME PRN PRN Reason: Anxiety Last Admin: 04/02/21 20:29 Dose: 25 mg Documented by: Ibuprofen (Ibuprofen 600 Mg Tablet) 600 mg PO Q6H PRN PRN Reason: Pain (Scale Score 4-6) Last Admin: 03/30/21 20:36 Dose: 600 mg Documented by: Levothyroxine Sodium (Levothyroxine Sodium 175 Mcg Tablet) 175 mcg PO DAILY@0600 [facility] Last Admin: 04/07/21 05:53 Dose: 175 mcg Documented by: Magnesium Hydroxide (Milk Of Magnesia 30 Ml Oral.Susp) 30 ml PO DAILY PRN PRN Reason: Constipation Metoprolol Tartrate (Metoprolol Tartrate 25 Mg Tablet) 25 mg PO DAILY [facility] Last Admin: 04/07/21 09:00 Dose: 25 mg Documented by: Multivitamins/Vitamin C (Multivitamin Tablet) 1 tab PO DAILY [facility] Last Admin: 04/07/21 08:59 Dose: 1 tab Documented by: Nicotine (Nicotine 21 Mg Patch.Td24) 21 mg TRANSDERMA DAILY [facility] Last Admin: 04/07/21 09:00 Dose: 21 mg Documented by: Nicotine Polacrilex (Nicotine Polacrilex 2 Mg Gum) 2 mg BUCCAL Q1H PRN PRN Reason: Nicotine Cravings Omeprazole (Omeprazole 20 Mg Capsule.Dr) 20 mg PO DAILY@0630 [facility] Last Admin: 04/07/21 05:54 Dose: 20 mg Documented by: Potassium Chloride (Potassium Chloride Er 10 Meq Capsule.Er) 10 meq PO DAILY [facility] Last Admin: 04/07/21 09:00 Dose: 10 meq Documented by: Risperidone (Risperidone 0.5 Mg Tablet) 0.5 mg PO Q4H PRN PRN Reason: Hallucinations Last Admin: 04/04/21 08:41 Dose: 0.5 mg Documented by: Sertraline HCl (Sertraline Hcl 100 Mg Tablet) 200 mg PO DAILY [facility] Last Admin: 04/07/21 08:59 Dose: 200 mg Documented by: Thiamine HCl (Thiamine Hcl 100 Mg Tablet) 100 mg PO DAILY [facility] Last Admin: 04/07/21 09:00 Dose: 100 mg Documented by: Trazodone HCl (Trazodone Hcl 50 Mg Tablet) 50 mg PO BEDTIME PRN PRN Reason: Insomnia Last Admin: 04/06/21 23:29 Dose: 50 mg Documented by: Allergies Allergies Allergy/AdvReac Type Severity Reaction Status Date / Time No Known Allergies Allergy Verified 03/30/21 14:23 Assessment & Plan Assessment & Plan (1) Depressive disorder: Status: Acute Code(s): F32.A - Depression, unspecified (2) Alcohol abuse with intoxication: Status: Acute Code(s): F10.129 - Alcohol abuse with intoxication, unspecified (3) Hypertension: Status: Acute Code(s): I10 - Essential (primary) hypertension (4) Dementia associated with alcoholism: Status: Acute Code(s): F10.27 - Alcohol dependence with alcohol-induced persisting dementia (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 On admission, and later on, she adamantly denies suicidal ideation and she is in a pre-contemplative state. Later on, we found out that she had advanced dementia, chronic liver failure, consequence of her chronic alcohol use disorder Plan 1. Continue same treatment 2. Discharged on Friday. The family is aware of Section 35 Reason for contiued inpatient stay Substantial Risk for: rapid decompensation
[2021-04-07 18:00] VITALS: BP 109/74; PULSE 73; RESP 20; TEMP 35.6; O2SAT 99
[2021-04-07] MEDS: traZODone HCL 50 MG TABLET PO (20:38)
[2021-04-08] MEDS: Omeprazole 20 MG CAPSULE.DR PO (06:29)
[2021-04-08] MEDS: Levothyroxine Sodium 175 MCG TABLET PO (06:29)
[2021-04-08 08:21] VITALS: BP 118/68; PULSE 78; RESP 18; TEMP 36.6; O2SAT 99
[2021-04-08] MEDS: Multivitamin TABLET 1 TAB PO (08:58)
[2021-04-08] MEDS: Thiamine HCL 100 MG TABLET PO (08:58)
[2021-04-08] MEDS: Sertraline HCL 100 MG TABLET 200 MG PO (08:58)
[2021-04-08] MEDS: Ferrous Sulfate 324 MG TABLET.DR PO (08:59)
[2021-04-08] MEDS: Cyclobenzaprine HCl 5 MG TABLET PO (08:59)
[2021-04-08] MEDS: Folic Acid 1 MG TABLET PO (08:59)
[2021-04-08] MEDS: Nicotine 21 MG PATCH.TD24 TRANSDERMA (08:59)
[2021-04-08] MEDS: Metoprolol Tartrate 25 MG TABLET PO (08:59)
[2021-04-09 12:41] LABS: Mixing Study - PT 10.8 sec (9.0-11.5); PTT LA 30 sec (< OR = 40)
== END 2021-04-08 13:15 | disposition home or self-care (01) | DRG 881 ==
PROVIDERS: Admitting Provider Psychiatry & Neurology Psychiatry; Visit Provider Psychiatry & Neurology Psychiatry
DX: F32.A Depression, unspecified (principal); R45.851 Suicidal ideations; F10.159 Alcohol abuse with alcohol-induced psychotic disorder, unspecified; I10 Essential (primary) hypertension; E03.9 Hypothyroidism, unspecified; K21.9 Gastro-esophageal reflux disease without esophagitis; F10.129 Alcohol abuse with intoxication, unspecified; F17.210 Nicotine dependence, cigarettes, uncomplicated; Z71.6 Tobacco abuse counseling; Z79.890 Hormone replacement therapy; Z79.899 Other long term (current) drug therapy
CPT/HCPCS: 36415; 80048; 80076; 82140; 82977; 85025; 85611; 85732